=== PATIENT | male | born 1975 | race Two or more races ===

== ENCOUNTER 2019-05-17 13:28 | Emergency (ER) | payer MEDICAID ==
[~2019-05-17] VITALS: Ht 167.6 cm; Wt 99.8 kg
[2019-05-17] MEDS ORDERED: IBUPROFEN 600 MG TABLET PO ONE ×2 (13:58→14:00)
--- NOTE | 2019-05-17 14:20 | NUR ---
ASSUMED CARE OF PT.
--- NOTE | 2019-05-17 14:30 | NUR ---
CON, ARCH[employer], IS AT THE BEDSIDE. PT LEFT HIS FACILITY AND WILL HAVE TO BE PLACED. CON WILL SPEAK TO THE CHERRY CUTTER RE: PLACEMENT
[2019-05-17 14:36] LABS: BASOPHILS # (AUTO) 0.1 /CMM (0.0-0.2); BASOPHILS % (AUTO) 1.2 % (0.0-2.0); EOSINOPHILS % (AUTO) 2.4 % (0.0-6.0); HEMATOCRIT 45 % (39-51); HEMOGLOBIN 14.9 g/dL (13.5-17.5); LYMPHOCYTES # (AUTO) 1.5 /CMM (0.8-4.8); LYMPHOCYTES % (AUTO) 21.8 % (20.0-44.0); MEAN CORPUSCULAR HGB CONC 33 g/dl (31.0-36.0); MEAN CORPUSCULAR VOLUME 86 fL (80-96); MONOCYTES # (AUTO) 0.3 /CMM (0.1-1.30); MONOCYTES % (AUTO) 3.9 % (2.0-12.0); NEUTROPHILS # (AUTO) 4.9 /CMM (1.8-8.9); NEUTROPHILS % (AUTO) 70.7 % (43.0-81.0); PLATELET COUNT (AUTO) 258 /CMM (150-450); RED BLOOD CELL COUNT(AUTO) 5.21 MIL/uL (4.5-6.0); WHITE BLOOD COUNT (AUTO) 6.9 K/uL (4.3-11.0)
[2019-05-17 14:43] LABS: CALCIUM, SERUM 9.2 mg/dL (8.5-10.1); CARBON DIOXIDE 23 mmol/L (21-32); CHLORIDE 110 mmol/L (98-107); CREATININE 0.8 mg/dL (0.6-1.3); GLUCOSE 138 mg/dL (74-106); POTASSIUM 3.9 mmol/L (3.5-5.1); SODIUM SERUM 143 mmol/L (136-145); UREA NITROGEN, BLOOD 17 mg/dL (7-18)
[2019-05-17 14:49] LABS: ALANINE AMINOTRANSFERASE 22 U/L (12-78); ALBUMIN 3.7 g/dL (3.4-5.0); ALKALINE PHOSPHATASE 112 U/L (46-116); ASPARTATE AMINOTRANSFERASE 18 U/L (15-37); BILIRUBIN,TOTAL 0.3 mg/dL (0.2-1.0); TOTAL PROTEIN, SERUM 8.1 g/dL (6.4-8.2)
--- NOTE | 2019-05-17 15:08 | NUR ---
PT'S O2 SAT IS 93-94% ON RA. PT STATED THAT HE OCCASIONALLY USES O2, BUT HAS NOT HAD TO USE IT IN A WHILE. PT STATED THAT HIS SINUS MEDICAITON TENDS TO WORK FOR HIM.
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
--- NOTE | 2019-05-17 16:02 | NUR ---
PT NEEDED ASSISTANCE WITH THE URINAL. APPROX 500 ML YELLOW URINE OUTPUT NOTED. SLIGHTLY CLOUDY. SAMPLE SENT TO LAB.
[2019-05-17 16:06] LABS: D-DIMER < 0.19 mg/L(FEU (0.17-0.50)
--- NOTE | 2019-05-17 16:35 | NUR ---
CALLED OFFICE, LEFT MSG
--- NOTE | 2019-05-17 16:50 | NUR ---
CALLED SW OFFICE, NO ANSWER
--- NOTE | 2019-05-17 17:15 | NUR ---
CALLED MARCIO, NURSING WEATHERIZATION ADMINISTRATOR RE: CASE MANAGEMENT'S NUMBER. WAS TOLD TO CALL [phone]. NO ANSWER. VOICE MESSAGE LEFT FOR CASE MANAGEMENT.
--- NOTE | 2019-05-17 17:15 | NUR ---
CALLED CON DIAPHRAGM BUILDER, RE: PLACEMENT. NO ANSWER. VOICE MESSAGE LEFT.
--- NOTE | 2019-05-17 17:16 | NUR ---
CALLED [phone] FOR CASE MANAGEMENT RE: PT'S PLACEMENT ISSUE.
--- NOTE | 2019-05-17 17:42 | NUR ---
REG DIET TRAY ORDERED FOR THE PT.
--- NOTE | 2019-05-17 18:59 | NUR ---
SPOKE TO KEDAR AT [facility]. PT IS OK TO COME BACK IF THE PT IS WILLING. PT STATED THAT HE WOUND RETURN. NUMBER TO CALL REPORT IS . PT IS GOING TO ROOM 2A.
--- NOTE | 2019-05-17 19:16 | NUR ---
JORGE ETA 2000 TRIP#[id number]
--- NOTE | 2019-05-17 19:32 | NUR ---
REPORT GIVEN TO ED, COTA FOR WOOD.
--- NOTE | 2019-05-17 19:34 | NUR ---
CALLING REPORT TO [facility]. PT IS GOING TO 2C. ISABELLA GUADARRAMA
--- NOTE | 2019-05-17 20:13 | NUR ---
TRANSPORT AT BEDSIDE REPORT GIVEN TO EMT TRANSPORT.
[2019-05-17 20:15] VITALS: BP 133/63
== END 2019-05-17 20:15 | disposition home or self-care (01) ==
LOC: ER 13:31
DX: R07.89 Other chest pain (principal); R51 Headache; G81.94 Hemiplegia, unspecified affecting left nondominant side; G40.909 Epilepsy, unspecified, not intractable, without status epilepticus; Z98.890 Other specified postprocedural states
CPT/HCPCS: 36415; 71045-TC; 80048-TC; 80076-TC; 84484-TC; 85025-TC; 85378-TC; 85730-TC